=== PATIENT | male | born 1970 | race Caucasian/White ===

== ENCOUNTER 2019-12-19 12:52 | Emergency (ER) | payer BC, OTHER ==
[2019-12-19 18:48] LABS: SARS-CoV-2 MS2 Positive; SARS-CoV-2 N Gene Negative; SARS-CoV-2 S Gene Negative; SARS-CoV-2 orf1ab Negative
== END 2019-12-19 13:25 | disposition home or self-care (01) ==
LOC: ERS 12:52
DX: Z20.828 Contact with and (suspected) exposure to other viral communicable diseases (principal); E11.9 Type 2 diabetes mellitus without complications
CPT/HCPCS: 87635; 99283; U0003

== ENCOUNTER 2024-01-08 15:56 | Emergency (ER) | payer BC, OTHER ==
[2024-01-08] MEDS ORDERED: Acetaminophen 500 MG TAB ONE (17:31)
[2024-01-08] MEDS ORDERED: Diazepam 5 MG TAB ONE (17:32)
[2024-01-08] MEDS ORDERED: Ketorolac Tromethamine 30 MG (1 mL) VIAL ONE (17:32)
== END 2024-01-08 18:19 | disposition home or self-care (01) ==
LOC: ERS 15:56
DX: S22.31XA Fracture of one rib, right side, initial encounter for closed fracture (principal); S39.012A Strain of muscle, fascia and tendon of lower back, initial encounter; M51.36 Other intervertebral disc degeneration, lumbar region; E11.9 Type 2 diabetes mellitus without complications; Z79.84 Long term (current) use of oral hypoglycemic drugs; W22.8XXA Striking against or struck by other objects, initial encounter
CPT/HCPCS: 72100; 96372; J1885